=== PATIENT | female | born 1950 | race Caucasian/White ===

== ENCOUNTER → 2017-07-05 | Outpatient (CLI) | payer MEDICARE, BC ==
[~2017-07-05] MED LIST: ATOR20TA PO; CALC1TAB75 PO; CETI10TA22 PO; ESCITALOPRAM OX10 MG PO; ESOM40CA25 PO; MOME17SP NS; OMEG1CAP6 PO; PSYL0.527 PO; RALO60TA PO; VIT1TABL2 PO
--- NOTE | 2017-07-05 11:26 | RAD ---
DATE: 07/05/2017 EXAM: MAMMO FRANKLYN SCREENING BILATERAL HISTORY: Screening COMPARISON: 12/01/2015 This study was interpreted with the benefit of Computerized Aided Detection (CAD). FINDINGS: Breast Density: HETERO The breast parenchyma Is heterogeneiously dense, which could reduce sensitivity of mammography. Breast parenchyma level C. There is not been a significant change in the appearance of the breasts. A small nodule in the left breast, best demonstrated on the franklyn cc images appears unchanged. IMPRESSION: Benign findings BI-RADS CATEGORY: 2 BENIGN FINDING(S) RECOMMENDED FOLLOW-UP: 12M 12 MONTH FOLLOW-UP PQRS compliance statement: Patient information was entered into a reminder system with a target due date 07/05/2018 for the next mammogram. Mammography is a sensitive method for finding small breast cancers, but it does not detect them all and is not a substitute for careful clinical examination. A negative mammogram does not negate a clinically suspicious finding and should not result in delay in biopsying a clinically suspicious abnormality. "Our facility is accredited by the [employer] Mammography [employer]."
== END | disposition home or self-care (01) ==
LOC: MAMMO 07:49
PROVIDERS: ATTEND Nurse Practitioner Family
DX: Z12.31 Encounter for screening mammogram for malignant neoplasm of breast (principal)
CPT/HCPCS: 77063; G0202; 77067

== ENCOUNTER → 2021-10-03 | Outpatient (CLI) | payer MEDICARE, BC ==
[~2021-10-03] MED LIST changes: +CALC-628 PO; -CALC1TAB75 PO; -CETI10TA22 PO; +CETI10TA74 PO; -MOME17SP NS; +MOME17SP5 NS
--- NOTE | 2021-10-03 09:11 | RAD ---
EXAM: Abdomen sonogram. HISTORY: Pain. TECHNIQUE: Sonographic imaging of the abdomen was performed. COMPARISON: None. FINDINGS: The liver is normal in size. No hepatic lesion is seen. The gallbladder is surgically absen t. The common bile duct is normal in caliber for patient age. The right kidney is normal in size. The re is right renal cortical thinning. There is no hydronephrosis. The pancreas is obscured due to leeanne l gas. The inferior vena cava is patent. IMPRESSION: 1. No acute sonographic finding. 2. Cholecystectomy. 3. Right renal cortical thinning. Electronically signed by: Myah Mensah MD (10/03/2021 9:09 AM) [id number]
== END ==
LOC: US 08:21
PROVIDERS: ATTEND Emergency Medicine
DX: K21.9 Gastro-esophageal reflux disease without esophagitis (principal); R19.7 Diarrhea, unspecified; R19.5 Other fecal abnormalities; R11.10 Vomiting, unspecified; R10.11 Right upper quadrant pain; Z90.49 Acquired absence of other specified parts of digestive tract
CPT/HCPCS: 76705